=== PATIENT | female | born 1985 | race African-American/Black ===

== ENCOUNTER 2020-09-09 08:05 | Emergency (ER) | payer BC, OTHER, SELFPAY ==
[2020-09-09 08:19] VITALS: BP 127/90; PULSE 87; RESP 16; TEMP 37.1; O2SAT 100
--- NOTE | 2020-09-09 08:19 | ED.FEMALEGU ---
HPI - Female Genitourinary General Chief complaint: Urogenital-Female Stated complaint: POS UTI Time Seen by Provider: 09/09/20 08:19 Source: patient Mode of arrival: ambulatory Limitations: no limitations History of Present Illness HPI Narrative: Karla Mclaughlin is a 35 yo female with no PMH who comes to express care with complaints of dysuria for the past 36 hours. 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 She states symptoms of dysuria started on day before yesterday with feeling kind of sluggish and just increasing frequency, no abdominal pain Related Data Allergies Allergy/AdvReac Type Severity Reaction Status Date / Time No Known Allergies Allergy Verified 09/09/20 08:18 Review of Systems Review of Systems: Narrative: CONSTITUTIONAL: Denies fever, chills, sweats. EYES: Denies visual changes, redness, discharge. ENT: Denies rhinorrhea, congestion, sore throat, otalgia. CARDIOVASCULAR: Denies chest pain, palpitations, edema. RESPIRATORY: Denies dyspnea, wheezing, cough GASTROINTESTINAL: Denies abdominal pain, nausea, vomiting, diarrhea. GENITOURINARY: has dysuria, no hematuria, abnormal discharge SKIN: Denies rash or itching. NEUROLOGIC: Denies numbness, or focal weakness. PSYCHIATRIC: Denies anxiety or depression. PMFSH Past Medical History Medical History (Updated 09/09/20 @ 08:36 by Katharine Osorio CNP) Hernia of abdominal wall No acute medical problems Family History Family History Other No acute medical problems Social History Social History (Updated 09/09/20 @ 08:34 by Katharine Osorio CNP) Smoking status: Never smoker Alcohol intake: never Comments At time of signature, I agree with nursing past medical, surgical, social and family history. There is no relevant family history pertinent to the presenting complaint. Exam Narrative: Exam Narrative: GENERAL: This is a well-nourished, well-developed patient, in mild distress. HEAD: normocephalic, atraumatic. EYES: Sclera clear/white. Vision is grossly intact. EARS: External ears normal, auditory canals clear and without drainage, TMs normal without perforation. Hearing grossly intact. NOSE: External nose normal without nasal discharge, nares without redness, no rhinorrhea. THROAT: Mucous membranes moist, posterior pharynx NECK: Neck supple, non-tender CARDIOVASCULAR: Regular rate and rhythm without murmurs, gallops, or rubs. RESPIRATORY: Clear to auscultation. Breath sounds equal bilaterally. No wheezes, rales, or rhonchi. GASTROINTESTINAL: Abdomen soft, non-tender, SKIN: warm, intact with no suspicious lesions or rash, good texture and turgor. NEURO: awake, alert, and oriented to person, place and time. There were no obvious focal neurologic abnormalities. Steady gait EXTREMITIES: Normal range of motion. BACK: Nontender without deformity Course Vital Signs Vital signs: Vital Signs Temperature 98.7 F 09/09/20 08:19 Pulse Rate 87 09/09/20 08:19 Respiratory Rate 16 09/09/20 08:19 Blood Pressure 127/90 09/09/20 08:19 Pulse Oximetry 100 09/09/20 08:19 Temperature 98.7 F 09/09/20 08:19 Pulse Rate 87 09/09/20 08:19 Respiratory Rate 16 09/09/20 08:19 Blood Pressure 127/90 09/09/20 08:19 Pulse Oximetry 100 09/09/20 08:19 MDM - Female Genitourinary Lab Data Labs: Urine Glucose Negative Reference Range: Negative Urine Bilirubin Negative Reference Range: Negative Urine Ketone Negative Reference Range: Negative Urine Specific [place] 1.025 Reference Range:1.001-1.035 *
== END 2020-09-09 08:41 | disposition home or self-care (01) ==
PROVIDERS: Emergency Provider Nurse Practitioner; PCP Family Medicine
DX: R30.0 Dysuria (principal)
CPT/HCPCS: 81003; 99213; G0463